=== PATIENT | female | born 1995 | race Caucasian/White ===

== ENCOUNTER → 2021-11-18 | Outpatient (CLI) | payer OTHER ==
[~2021-11-18] MED LIST: GADOTERATE 0.5 MMOL/ML (CLARISCAN) 15 ML VIAL IV ONE; NF-ESOM40C PO; ONDA4TAB8 PO
--- NOTE | 2021-11-18 14:19 | Diagnostic Imaging Report ---
PROCEDURE: MR imaging of the brain with and without contrast. TECHNIQUE: Multiplanar, multisequence MR imaging of the brain was performed with and without contrast. INDICATION: Headache. COMPARISON: None. FINDINGS: No abnormal intracranial signal or enhancement. No restricted water diffusion. No hemosiderin deposition or evidence of intracranial hemorrhage. Normal morphology including the major midline structures, sella, posterior fossa, and cerebellopontine angle. Normal intracranial flow voids. No hydrocephalus or extra-axial fluid collections. The orbits are negative. Paranasal sinuses and mastoids are clear. Normal bone marrow signal. IMPRESSION: Normal MRI of the brain without and with IV contrast. No acute findings. Dictated by: Dictated on workstation # [id number]
--- NOTE | 2021-11-18 14:21 | Diagnostic Imaging Report ---
PROCEDURE: MR imaging cervical spine with and without contrast. TECHNIQUE: Multiplanar and multisequence MRI of the cervical spine was performed with and without contrast. INDICATION: Neck pain. Headaches. COMPARISON: None. FINDINGS: Normal alignment. Vertebral body heights preserved. No abnormal bone marrow signal or enhancement. No abnormal signal or enhancement in the cervical spinal cord. At C3-C4, small disc protrusion results in mild to moderate left neural foraminal narrowing. No spinal canal narrowing. No other substantial spondylotic change or evidence of neural impingement in the cervical spine. Visualized paravertebral soft tissues are unremarkable. IMPRESSION: 1. Small left paracentral disc protrusion at C3-C4 results in mild to moderate left neural foraminal narrowing. 2. No other spondylotic change or evidence of neural impingement. 3. No abnormal signal or enhancement in the cervical spinal cord. Dictated by: Dictated on workstation # [id number]
== END ==
LOC: RAD 12:30
PROVIDERS: ATTEND Chiropractor
DX: M99.01 Segmental and somatic dysfunction of cervical region (principal); M99.02 Segmental and somatic dysfunction of thoracic region
CPT/HCPCS: 70553; 72156

== ENCOUNTER → 2022-11-03 | Outpatient (CLI) | payer OTHER ==
[~2022-11-03] MED LIST changes: -GADOTERATE 0.5 MMOL/ML (CLARISCAN) 15 ML VIAL IV ONE
--- NOTE | 2022-11-03 14:59 | Diagnostic Imaging Report ---
INDICATION: Routine care TECHNIQUE: Multiple real-time grayscale images were obtained over the gravid uterus. COMPARISON: None FINDINGS: Fried intrauterine fetus is present in variable presentation. Amniotic fluid index is 13 cm and placenta is anterior with heart rate of 153 bpm. No anomalies identified. biometry indicates gestational age of 20 weeks. Cervical length is 4.6 cm. There is no evidence of previa. No maternal adnexal region abnormality is seen. IMPRESSION: Unremarkable obstetrical ultrasound estimated gestational age of 20 weeks. Sonographic EDC is 03/23/2023. Biometrical measurements are as follows: Biparietal 4.52 cm, age 19 weeks 5 days. Head circumference 17.05 cm, age 19 weeks 5 days. Abdominal circumference 15.17 cm, age 20 weeks 3 days. Femur length 3.23 cm, age 20 weeks 1 days. Sonographic estimate age: 20 weeks 0 days. Sonographic estimated date of delivery: 03/23/2023. Estimated Weight: 336 gm (+/- 49 gm). LMP percentile: 46%. heart rate: 153 beats per minute. number: 1 of 1. IMPRESSION: Dictated by: Dictated on workstation # [id number]
== END ==
LOC: RAD 10:00
PROVIDERS: ATTEND Nurse Practitioner Women's Health
DX: Z34.02 Encounter for supervision of normal first pregnancy, second trimester (principal); Z3A.20 20 weeks gestation of pregnancy
CPT/HCPCS: 76805

== ENCOUNTER 2023-02-23 14:09 | Outpatient (CLI) | payer OTHER ==
[~2023-02-23] VITALS: Ht 160 cm; Wt 84.2 kg
[2023-02-23] VITALS (8 sets, daily range): BP systolic 120–131; BP diastolic 69–86
[2023-02-23 14:38] LABS: CLARITY,URINE CLEAR; COLOR,URINE YELLOW; GLUCOSE, URINE (UA) NEGATIVE (NEGATIVE); KETONES,URINE NEGATIVE (NEGATIVE); NITRITE,URINE NEGATIVE (NEGATIVE); PH,URINE 6.5 (5-9); PROTEIN,URINE NEGATIVE (NEGATIVE)
[2023-02-23 14:39] LABS: BILIRUBIN,URINE NEGATIVE (NEGATIVE); LEUKOCYTE ESTERASE ,URINE NEGATIVE (NEGATIVE)
[2023-02-23 14:42] LABS: RBC,URINE RARE /HPF
[2023-02-23 14:43] LABS: BACTERIA,URINE FEW /HPF; WBC,URINE 0-2 /HPF
[2023-02-23] MEDS ORDERED: DOXY25TA56 PO (15:48)
[2023-02-23] MEDS ORDERED: FAMO-119 PO (15:48)
[2023-02-23] MEDS ORDERED: CITA40TA19 PO (15:48)
[2023-02-23] MEDS ORDERED: PREN1TAB79 PO (15:48)
--- NOTE | 2023-02-24 08:19 | Physician Query-Final Dx ---
AMARJIT,02/24/23 0819: Clinic Account Progress/Dx Physician Query: Please give diagnosis Please include # weeks gestation Date of Service Feb 23, 2023 at 14:09 SELVIN SOTO DO 02/24/23 1241: Clinic Account Progress/Dx DIAGNOSIS: Diagnosis 36 week IUP Irregular contractions AMARJIT,JulFeb 24, 2023 08:19 SELVIN SOTO DO Feb 24, 2023 12:41
== END 2023-02-23 16:05 | disposition home or self-care (01) ==
LOC: WSo 14:09 → LDRP 14:09 → WSo 16:05
PROVIDERS: ATTEND Obstetrics & Gynecology
DX: O47.03 False labor before 37 completed weeks of gestation, third trimester (principal); Z3A.36 36 weeks gestation of pregnancy
CPT/HCPCS: 81000; 87077; 87088; 99214

== ENCOUNTER 2023-03-16 06:35 | Inpatient (IN) | payer OTHER ==
[~2023-03-16] VITALS: Ht 160 cm; Wt 87.0 kg
[2023-03-16] VITALS (62 sets, daily range): BP systolic 103–149; BP diastolic 54–87
[~2023-03-16 06:35] MED LIST changes: +CITA40TA19 PO; +DOXY25TA56 PO; +FAMO-119 PO; +PREN1TAB79 PO
--- NOTE | 2023-03-16 07:22 | History & Physical-OB ---
LINDENSTEPH 03/16/23 0722: OB - Chief Complaint & HPI Date/Time Date of Admission: Date of Admission: Mar 16, 2023 at 06:35 Date seen by a Provider: Mar 16, 2023 Time Seen by a Provider: 08:00 Chief Complaint/History OB-Reason for Admission/Chief: Induction of Labor Hx : 2 Hx Para: 1 Expected Date of Delivery: Mar 16, 2023 Indication for induction: post dates Allergies and Home Medications Allergies Coded Allergies: No Known Drug Allergies (Unverified , 03/18/10) Patient Home Medication List Citalopram Hydrobromide (Celexa) 40 Mg Tablet, 40 MG PO HS, (Reported) Entered as Reported by: MONSE WEST on 02/23/231547 Doxylamine Succinate (Unisom) 25 Mg Tablet, 25 MG PO HS, (Reported) Entered as Reported by: MONSE WEST on 02/23/231547 Famotidine (Pepcid) 20 Mg Tablet, 20 MG PO HS, (Reported) Entered as Reported by: MONSE WEST on 02/23/231547 Vit W-Ca,Fe,FA(<1 mg) ( Vitamins) 27 Mg Iron-800 Mcg Tablet, 1 EACH PO DAILY, (Reported) Entered as Reported by: MONSE WEST on 02/23/231547 OB - History Hx of Present Care: Yes Ultrasounds: Normal mid trimester US Obstetrical Complications: None Medical Complications: None Information Induced Hypertension: No Maternal Gestational Diabetes: No Hemorrhage: No Obstetrical History Hx : 2 Hx Para: 1 Number of Living Children: 1 Delivery History Hx Blood Disorders: No Adverse Rxn to Tranfusion: No Patient Past Medical History NC Social History/Family History 2nd Hand Smoke Exposure: No OB - Admission Exam Physical Exam HEENT: NCAT Heart: Rhythm Normal Lungs: Clear Abdomen: Gravid Extremities: Normal Reflexes: Normal Cervical Dilatation: 4cm Effacement: 75% Station: -1 Membranes: Intact Amniotic Fluid: Clear Heart Rate: 130's Contractions on Admission: 6-10 Minutes Apart OB - Assessment/Plan/Diagnosis Assessment Assessment: induction of labor Admission Dx Elective induction of labor at term Admission Status: Inpatient Order (span 2 midnights) Reason for Inpatient Admission: IOL Plan Plan: Expectant Management, Induction Induction Method: per Pitocin Protocol Reason for Induction: Elective at term Discharge Diagnosis Diagnosis: Anemia of acute blood loss ANDREI SOTO DO 03/16/2313: Allergies and Home Medications Allergies Coded Allergies: No Known Drug Allergies (Unverified , 03/18/10) Patient Home Medication List Home Medication List Reviewed: Yes Citalopram Hydrobromide (Celexa) 40 Mg Tablet, 40 MG PO HS, (Reported) Entered as Reported by: MONSE WEST on 02/23/231547 Doxylamine Succinate (Unisom) 25 Mg Tablet, 25 MG PO HS, (Reported) Entered as Reported by: MONSE WEST on 02/23/231547 Famotidine (Pepcid) 20 Mg Tablet, 20 MG PO HS, (Reported) Entered as Reported by: MONSE WEST on 02/23/231547 Vit W-Ca,Fe,FA(<1 mg) ( Vitamins) 27 Mg Iron-800 Mcg Tablet, 1 EACH PO DAILY, (Reported) Entered as Reported by: MONSE WEST on 02/23/231547 OB - Assessment/Plan/Diagnosis Plan Other Plan Verification and Attestation of Medical Student E/M Service A medical student performed and documented this service in my presence. I reviewed and verified all information documented by the medical student and made modifications to such information, when appropriate. I personally performed the physical exam and medical decision making. Andrei Soto, Mar 16, 2023,08:13 STEPH CHEATHAM Mar 16, 2023 07:22 ANDREI SOTO DO Mar 16, 2023 08:13
[2023-03-16] MEDS ORDERED: LACTATED RINGERS 1,000 ML 500 ML IV PRN (07:30)
[2023-03-16] MEDS ORDERED: LIDOCAINE 1% INJ 20 ML VIAL IJ PRN (07:30)
[2023-03-16] MEDS: D5 LR 1,000 ML IV SOLN 1,000 ML IV SCH ×2 (07:41→15:35)
[2023-03-16 07:46] LABS: BASOPHILS % (AUTO) 0 % (0-10); EOSINOPHILS # (AUTO) 0.1 10^3/uL (0.0-0.3); EOSINOPHILS % (AUTO) 1 % (0-10); HEMATOCRIT 32 % (35-52); LYMPHOCYTES # (AUTO) 1.2 10^3/uL (1.0-4.0); LYMPHOCYTES % (AUTO) 14 % (12-44); MEAN CORPUSCULAR HEMOGLOBIN 28 pg (25-34); MEAN CORPUSCULAR HGB CONC 32 g/dL (32-36); MEAN CORPUSCULAR VOLUME 89 fL (80-99); MEAN PLATELET VOLUME 11.8 fL (9.0-12.2); MONOCYTES # (AUTO) 0.5 10^3/uL (0.0-1.0); MONOCYTES % (AUTO) 6 % (0-12); NEUTROPHILS % (AUTO) 79 % (42-75); PLATELET COUNT 246 10^3/uL (130-400); WHITE BLOOD COUNT 8.8 10^3/uL (4.3-11.0)
[2023-03-16 07:49] LABS: CLARITY,URINE CLEAR; COLOR,URINE YELLOW
[2023-03-16 07:50] LABS: BACTERIA,URINE MODERATE /HPF; BILIRUBIN,URINE NEGATIVE (NEGATIVE); GLUCOSE, URINE (UA) NEGATIVE (NEGATIVE); KETONES,URINE NEGATIVE (NEGATIVE); LEUKOCYTE ESTERASE ,URINE TRACE (NEGATIVE); NITRITE,URINE NEGATIVE (NEGATIVE); PROTEIN,URINE 2+ (NEGATIVE); SQUAMOUS EPITHELIAL CELL,UR >50 /HPF; WBC,URINE 0-2 /HPF
[2023-03-16] MEDS ORDERED: OXYTOCIN DRIP PRE-MIX 500 ML IV SCH (08:15)
[2023-03-16] MEDS ORDERED: fentaNYL 2 mcg/ml BUPIVA 0.125 100 ML ONE (09:08)
[2023-03-16] MEDS ORDERED: fentaNYL INJECTION 100 MCG/2 ML VIAL ONE (09:46)
[2023-03-16] MEDS ORDERED: BUPIVACAINE 0.25% 10 ML VIAL ONE (09:46)
[2023-03-16] MEDS: fentaNYL 2 mcg/ml BUPIVA 0.125 100 ML EPI SCH ×2 (10:15→17:26)
[2023-03-16] MEDS ORDERED: NALOXONE 0.4 MG/ML 1 ML VIAL IV PRN ×2 (12:45→21:15)
[2023-03-16] MEDS ORDERED: CATHETER FLUSH 10 ML SYR IV PRN (12:45)
[2023-03-16] MEDS ORDERED: diphenhydrAMINE INJ 50 MG/ML VIAL IV PRN (12:45)
[2023-03-16] MEDS ORDERED: LACTATED RINGERS 1,000 ML 1,000 ML IV ONE (12:45)
[2023-03-16] MEDS ORDERED: ONDANSETRON INJECTION 4 MG/2 ML (SDV) IV PRN (12:45)
[2023-03-16] MEDS ORDERED: CATHETER FLUSH 10 ML SYR IV SCH ×2 (14:00→22:00)
[2023-03-16] MEDS ORDERED: LIDOCAINE 1% INJ 10 ML VIAL ONE (15:34)
[2023-03-16] MEDS ORDERED: ceFAZolin INJECTION 2,000 MG in NS (IVPB) 50 ML 50 ML IV ONE (21:00)
[2023-03-16] MEDS ORDERED: HYDROcodone/ACETAMINOPHEN 5 MG/325 MG TABLET PO PRN (21:15)
[2023-03-16] MEDS ORDERED: MEASLES, MUMPS, RUBELLA VACCINE (MMR) SQ ONE (21:15)
[2023-03-16] MEDS ORDERED: BENZOCAINE/MENTHOL (DERMOPLAST) 56 ML CAN TP PRN (21:15)
[2023-03-16] MEDS ORDERED: Tetanus/Diphtheria/Pertussis (Acell) ADULT Vaccine 0.5 ML IM ONE (21:15)
[2023-03-16] MEDS ORDERED: DIBUCAINE 1% OINTMENT 28 GM TUBE TOP PRN (21:15)
--- NOTE | 2023-03-16 21:19 | OB Labor & Delivery Record ---
L&D History Date of Service Date of Service: Mar 16, 2023 History Expected Date of Delivery: Mar 16, 2023 Gestational Age in Weeks: 39 Hx : 2 Hx Para: 1 Complications Events: Routine care Operative Indications (Cesarea: N/A-Vaginal Delivery Intrapartal Events: None L&D Stage1 Stage One Onset of Labor - Date: Mar 16, 2023 Monitors and Tracing Monitor Mode: Internal Heart Rate: 150 Station: +1 Mcfp Variability: Average (6-10) Short Term Variability: Present Presentation: Vertex Vital Signs VS - Last 72 Hours, by Label 03/16/23 03/16/23 03/16/23 03/16/23 08:05 08:31 09:08 09:23 Temp 37.2 36.3 Pulse 99 99 96 93 Resp 20 20 20 22 B/P (MAP) 149/83 (105) 145/75 (98) 129/74 (92) Pulse Ox 98 O2 Delivery Room Air Room Air Room Air Room Air 03/16/23 03/16/23 03/16/23 03/16/23 09:37 09:52 09:55 10:08 Pulse 101 106 104 108 Resp 22 20 20 22 B/P (MAP) 130/74 (92) 133/79 (97) 133/79 (97) 124/83 (97) Pulse Ox 100 100 99 O2 Delivery Room Air Room Air Room Air Room Air 03/16/23 03/16/23 03/16/23 03/16/23 10:10 10:12 10:20 10:25 Pulse 108 95 90 95 Resp 22 22 22 22 B/P (MAP) 124/84 (97) 123/77 (92) 133/80 (97) 128/74 (92) Pulse Ox 99 98 97 99 O2 Delivery Room Air Room Air Room Air Room Air 03/16/23 03/16/23 03/16/23 03/16/23 10:30 10:35 10:40 10:45 Pulse 82 97 82 81 Resp 22 22 20 20 B/P (MAP) 127/72 (90) 131/81 (98) 125/74 (91) 125/75 (92) Pulse Ox 98 98 98 98 O2 Delivery Room Air Room Air Room Air Room Air 03/16/23 03/16/23 03/16/23 03/16/23 10:50 10:55 11:00 11:05 Pulse 82 80 77 98 Resp 20 20 20 20 B/P (MAP) 123/86 (98) 120/71 (87) 118/69 (85) 125/71 (89) Pulse Ox 98 98 97 99 O2 Delivery Room Air Room Air Room Air Room Air 03/16/23 03/16/23 03/16/23 03/16/23 11:10 11:15 11:40 11:55 Temp 36.7 Pulse 84 92 97 96 Resp 20 20 18 18 B/P (MAP) 126/71 (89) 124/85 (98) 144/87 (106) 132/75 (94) Pulse Ox 98 99 97 97 O2 Delivery Room Air Room Air Room Air Room Air 03/16/23 03/16/23 03/16/23 03/16/23 12:15 12:26 12:40 12:55 Pulse 91 93 85 94 Resp 18 20 20 20 B/P (MAP) 124/75 (91) 130/85 (100) 114/56 (75) 114/54 (74) Pulse Ox 97 96 97 97 O2 Delivery Room Air Room Air Room Air Room Air 03/16/23 03/16/23 03/16/23 03/16/23 13:15 13:30 13:40 15:10 Pulse 88 96 97 Resp 20 20 20 B/P (MAP) 127/61 (83) 121/73 (89) 125/77 (93) 133/73 (93) Pulse Ox 97 99 97 O2 Delivery Room Air Room Air Room Air 03/16/23 03/16/23 03/16/23 03/16/23 15:40 16:00 16:15 16:30 Pulse 96 92 85 Resp 20 20 20 20 B/P (MAP) 119/72 (88) 121/73 (89) 120/75 (90) 123/69 (87) Pulse Ox 98 100 99 100 O2 Delivery Room Air Room Air Room Air Room Air 03/16/23 03/16/23 03/16/23 03/16/23 16:45 17:00 17:15 18:02 Temp 37.3 Pulse 122 126 126 117 Resp 22 22 22 20 B/P (MAP) 132/67 (88) 114/79 (91) Pulse Ox 100 100 100 O2 Delivery Room Air Room Air Room Air Room Air 03/16/23 03/16/23 03/16/23 03/16/23 18:32 18:40 18:45 18:55 Pulse 110 112 110 114 Resp 20 20 22 20 B/P (MAP) 122/58 (79) 103/55 (71) 122/58 (79) 118/78 (91) Pulse Ox 100 O2 Delivery Room Air Room Air Room Air Room Air 03/16/23 03/16/23 03/16/23 03/16/23 19:00 19:10 19:32 20:07 Temp 38.4 38.7 Pulse 110 Resp 22 B/P (MAP) 122/58 (79) 121/79 (93) Pulse Ox 100 O2 Delivery Room Air 03/16/23 20:53 Temp 38.4 Rupture of Membranes Spontaneous Ruture of Membrane: Yes Amniotic Membrane Rupture Time: 0802 Amniotic Membrane Fluid Desc.: Clear Induction/Anesthesia Epidural Cath Placement - Time: 1006 Progress/Notes Patient brought in for IOL at 39 weeks at her request. She had arom performed and pitocin augmentation started, she had an epidural placed and progressed to complete and + 1 station, when she began to push. L&D Stage2 Stage Two Stage II Date: Mar 16, 2023 Monitors and Tracing Monitor Mode: Internal Heart Rate: 150 Monitor Accelerations: Uniform Monitor Decelerations: Variable Mcfp Variability: Average (6-10) Short Term Variability: Present Position: Right Occiput Anterior Presentation: Vertex Signs of Distress by FHT Signs of Distress Patient was ineffective at pushing initially, and presentation was too high for operative extraction so she was labored down for nearly 3 hrs with position changes. When reassessed station was noted at +2-3, discussed with patient operative low vacuum extraction, due to continued ineffective pushing. Risk reviewed with RN present to confirm discussion, all questions answered. With next contraction break I applied the kiwi vacuum cup to the flexion point of the scalp, and rechecked for correct position after it was placed. With next maternal contraction, 500 mmHg applied using handpiece and with gentle extension of the head, the head was delivered over an RML episiotomy. After this, FSE and vacuum removed, anterior and posterior shoulders delivered without difficulty. Infant was brought out onto maternal abdomen. Cord Descript/Complications Cord Vessel Description: 3 Vessels Delivery Type Delivery Method: Low Vacuum Extraction Anterior Shoulder: Left Episiotomy/Perineal Laceration Laceraction(s)/Extensions: Yes Episiotomy Description: Right Mediolateral Degree (describe repair) RML repaired using 3-0 and 2-0 vicryl in usual fashion Condition of Infant Delivery 1 minute Comment: 5 5 minute Comment: 7,9 Notes Live female 7lbs 12 oz Condition of Infant Condition of Infant: Living Exam: No Observed Abnormalities Resuscitation Resuscitation: N/A - Spontaneous Resp L&D Stage3 Stage Three Stage III Date: Mar 16, 2023 Pictocin Pitocin Administration mu/min: 8 Pitocin ml/hr: 8 Pitocin Administration Comment: 30 mu wide open after delivery of placenta Due to significant swelling mckoy catheter was replaced, and maternal temp was noted prior to delivery so 2 gm ancef was given at delivery. Placenta Delivery Placenta Delivery: Spontaneous Delivery Summary Summary Estimated blood loss (mL): 350 Attending at delivery: Selvin Soto DO Condition of Delivery Examined: Cervix Examined, Uterus Explored Post Hemorrhage: No Condition of Mother stable Condition of Infant (s) stable SELVIN SOTO DO Mar 16, 2023 21:19
[2023-03-16] MEDS: OXYTOCIN DRIP PRE-MIX 500 ML IV SCH ×2 (21:41→22:05)
[2023-03-16] MEDS: IBUPROFEN 600 MG TABLET PO SCH (21:52)
[2023-03-17 04:23] VITALS: BP 110/57
[2023-03-17] MEDS: IBUPROFEN 600 MG TABLET PO SCH ×4 (04:24→23:56)
[2023-03-17 05:36] LABS: BASOPHILS % (AUTO) 0 % (0-10); EOSINOPHILS % (AUTO) 0 % (0-10); HEMATOCRIT 26 % (35-52); HEMOGLOBIN 8.3 g/dL (11.5-16.0); LYMPHOCYTES # (AUTO) 1.1 10^3/uL (1.0-4.0); LYMPHOCYTES % (AUTO) 6 % (12-44); MEAN CORPUSCULAR HEMOGLOBIN 29 pg (25-34); MEAN CORPUSCULAR HGB CONC 32 g/dL (32-36); MEAN CORPUSCULAR VOLUME 89 fL (80-99); MEAN PLATELET VOLUME 11.5 fL (9.0-12.2); MONOCYTES % (AUTO) 6 % (0-12); NEUTROPHILS # (AUTO) 16.5 10^3/uL (1.8-7.8); NEUTROPHILS % (AUTO) 88 % (42-75); PLATELET COUNT 218 10^3/uL (130-400); WHITE BLOOD COUNT 18.8 10^3/uL (4.3-11.0)
[2023-03-17] MEDS: WITCH HAZEL(TUCKS) 40 EA JAR TOP PRN (06:17)
--- NOTE | 2023-03-17 07:04 | Postpartum Progress Note ---
STEPH CHEATHAM 03/17/23 0704: Note Note Day # 1 Subjective: Patient is without complaints. Ambulating, has not tried voiding as of 0650. Connor catheter out around 0600. Tolerating a regular diet without vomiting. Reports minor nausea last night. Normal lochia. Pain is well controlled with oral pain medications. Bottle feeding. Objective: Physical Exam: General - Alert and oriented, no apparent distress Abdomen - Soft, appropriately tender to palpation, non-distended, fundus firm at umbilicus Extremities - no edema, negative Lex's bilaterally Assessment: post- day # 1, status post vacuum-assisted vaginal delivery with episiotomy. Recovering well, hemodynamically stable, low hemoglobin Plan: Routine care. Encourage breast feeding. Encourage ambulation. Ferrous sulfate supplementation. Plan for discharge 03/18/23 AM Vitals - Labs Vital Signs - I&O Vital Signs Date Time Temp Pulse Resp B/P (MAP) Pulse Ox O2 Delivery O2 Flow Rate FiO2 03/17/23 04:23 36.0 95 18 110/57 (74) 98 Room Air 03/16/23 23:23 100 18 138/73 (94) 97 Room Air 03/16/23 23:02 37.4 107 18 131/69 (89) 97 Room Air 03/16/23 22:53 103 128/65 (86) 03/16/23 22:38 101 121/61 (81) 03/16/23 22:24 121 112/61 (78) 03/16/23 22:08 111 135/62 (86) 03/16/23 22:04 112 139/69 (92) 03/16/23 21:56 115 138/64 (88) 03/16/23 21:53 121 132/62 (85) 03/16/23 21:43 112 144/83 (103) 03/16/23 21:24 99 123/57 (79) 03/16/23 21:09 101 130/58 (82) 03/16/23 20:55 113 18 138/61 (86) 99 Room Air 03/16/23 20:53 38.4 03/16/23 20:40 102 104/65 (78) 99 Room Air 03/16/23 20:34 110 18 100 Room Air 03/16/23 20:26 128/60 (82) 03/16/23 20:11 136/77 (96) 03/16/23 20:07 38.7 03/16/23 19:55 123/71 (88) 03/16/23 19:40 126/75 (92) 03/16/23 19:32 38.4 03/16/23 19:10 121/79 (93) 03/16/23 19:00 110 22 122/58 (79) 100 Room Air 03/16/23 18:55 114 20 118/78 (91) Room Air 03/16/23 18:45 110 22 122/58 (79) 100 Room Air 03/16/23 18:40 112 20 103/55 (71) Room Air 03/16/23 18:32 110 20 122/58 (79) Room Air 03/16/23 18:02 37.3 117 20 114/79 (91) Room Air 03/16/23 17:15 126 22 100 Room Air 03/16/23 17:00 126 22 100 Room Air 03/16/23 16:45 122 22 132/67 (88) 100 Room Air 03/16/23 16:30 20 123/69 (87) 100 Room Air 03/16/23 16:15 85 20 120/75 (90) 99 Room Air 03/16/23 16:00 92 20 121/73 (89) 100 Room Air 03/16/23 15:40 96 20 119/72 (88) 98 Room Air 03/16/23 15:10 97 20 133/73 (93) 97 Room Air 03/16/23 13:40 96 20 125/77 (93) 99 Room Air 03/16/23 13:30 121/73 (89) 03/16/23 13:15 88 20 127/61 (83) 97 Room Air 03/16/23 12:55 94 20 114/54 (74) 97 Room Air 03/16/23 12:40 85 20 114/56 (75) 97 Room Air 03/16/23 12:26 93 20 130/85 (100) 96 Room Air 03/16/23 12:15 91 18 124/75 (91) 97 Room Air 03/16/23 11:55 36.7 96 18 132/75 (94) 97 Room Air 03/16/23 11:40 97 18 144/87 (106) 97 Room Air 03/16/23 11:15 92 20 124/85 (98) 99 Room Air 03/16/23 11:10 84 20 126/71 (89) 98 Room Air 03/16/23 11:05 98 20 125/71 (89) 99 Room Air 03/16/23 11:00 77 20 118/69 (85) 97 Room Air 03/16/23 10:55 80 20 120/71 (87) 98 Room Air 03/16/23 10:50 82 20 123/86 (98) 98 Room Air 03/16/23 10:45 81 20 125/75 (92) 98 Room Air 03/16/23 10:40 82 20 125/74 (91) 98 Room Air 03/16/23 10:35 97 22 131/81 (98) 98 Room Air 03/16/23 10:30 82 22 127/72 (90) 98 Room Air 03/16/23 10:25 95 22 128/74 (92) 99 Room Air 03/16/23 10:20 90 22 133/80 (97) 97 Room Air 03/16/23 10:12 95 22 123/77 (92) 98 Room Air 03/16/23 10:10 108 22 124/84 (97) 99 Room Air 03/16/23 10:08 108 22 124/83 (97) 99 Room Air 03/16/23 09:55 104 20 133/79 (97) 100 Room Air 03/16/23 09:52 106 20 133/79 (97) 100 Room Air 03/16/23 09:37 101 22 130/74 (92) Room Air 03/16/23 09:23 93 22 129/74 (92) Room Air 03/16/23 09:08 96 20 145/75 (98) Room Air 03/16/23 08:31 36.3 99 20 98 Room Air 03/16/23 08:05 37.2 99 20 149/83 (105) Room Air I & O 03/17/23 07:00 Intake Total 3457 ml Output Total 1100 ml Balance 2357 ml Labs Laboratory Tests 03/16/23 07:35: White Blood Count 8.8, Red Blood Count 3.54L, Hemoglobin 10.0L, Hematocrit 32L, Mean Corpuscular Volume 89, Mean Corpuscular Hemoglobin 28, Mean Corpuscular Hemoglobin Concent 32, Red Cell Distribution Width 14.5, Platelet Count 246, Mean Platelet Volume 11.8, Immature Granulocyte % (Auto) 1, Neutrophils (%) (Auto) 79H, Lymphocytes (%) (Auto) 14, Monocytes (%) (Auto) 6, Eosinophils (%) (Auto) 1, Basophils (%) (Auto) 0, Neutrophils # (Auto) 7.0, Lymphocytes # (Auto) 1.2, Monocytes # (Auto) 0.5, Eosinophils # (Auto) 0.1, Basophils # (Auto) 0.0, Immature Granulocyte # (Auto) 0.1, Urine Color YELLOW, Urine Clarity CLEAR, Urine pH 7.0, Urine Specific [place] 1.025H, Urine Protein 2+H, Urine Glucose (UA) NEGATIVE, Urine Ketones NEGATIVE, Urine Nitrite NEGATIVE, Urine Bilirubin NEGATIVE, Urine Urobilinogen 0.2, Urine Leukocyte Esterase TRACEH, Urine RBC (Auto) 1+H, Urine RBC 5-10H, Urine WBC 0-2, Urine Squamous Epithelial Cells >50H , Urine Crystals NONE, Urine Bacteria MODERATEH, Urine Casts NONE, Urine Mucus SMALLH, Urine Culture Indicated NO, Syphilis Total Antibody Negative 03/17/23 05:28: White Blood Count 18.8H, Red Blood Count 2.91L, Hemoglobin 8.3L, Hematocrit 26L, Mean Corpuscular Volume 89, Mean Corpuscular Hemoglobin 29, Mean Corpuscular Hemoglobin Concent 32, Red Cell Distribution Width 14.6H, Platelet Count 218, Mean Platelet Volume 11.5, Immature Granulocyte % (Auto) 1, Neutrophils (%) (Auto) 88H, Lymphocytes (%) (Auto) 6L, Monocytes (%) (Auto) 6, Eosinophils (%) (Auto) 0, Basophils (%) (Auto) 0, Neutrophils # (Auto) 16.5H, Lymphocytes # (Auto) 1.1, Monocytes # (Auto) 1.0, Eosinophils # (Auto) 0.0, Basophils # (Auto) 0.0, Immature Granulocyte # (Auto) 0.1 CHARLESANDREI 03/17/23 0712: Note Note Diagnosis addendum: add Acute blood loss anemia Verification and Attestation of Medical Student E/M Service A medical student performed and documented this service in my presence. I reviewed and verified all information documented by the medical student and made modifications to such information, when appropriate. I personally performed the physical exam and medical decision making. Andrei Soto, Mar 17, 2023,07:12 STEPH CHEATHAM Mar 17, 2023 07:04 ANDREI SOTO DO Mar 17, 2023 07:12
[2023-03-17] MEDS: DOCUSATE SODIUM 100 MG CAPSULE PO SCH ×2 (09:03→20:42)
[2023-03-17 09:04] VITALS: BP 121/64
[2023-03-17] MEDS: PRENATAL VITAMIN TABLET PO SCH (09:04)
[2023-03-17] MEDS: FERROUS SULFATE 325 MG (IRON) TABLET PO SCH (09:04)
[2023-03-17 12:00] VITALS: BP 104/64
--- NOTE | 2023-03-17 14:12 | Anesthesia-Regional Post-Op ---
Regional Patient Condition Mental Status: Alert, Oriented x3 Circulation: Same as Pre-Op Headache: Absent Sensation: Full Recovery Motor Block: Absent Post Op Complications Complications None Follow Up Care/Instructions Patient Instructions None needed. Anesthesia/Patient Condition Patient is doing well, no complaints, stable vital signs, no apparent adverse anesthesia problems. No complications reported per nursing. KELSEY MELLO CRNA Mar 17, 2023 14:12
[2023-03-17 17:50] VITALS: BP 120/58
[2023-03-17] MEDS ORDERED: ACETAMINOPHEN 500 MG TABLET ONE (20:40)
[2023-03-17] MEDS: ACETAMINOPHEN 500 MG TABLET PO PRN (20:42)
[2023-03-17 23:56] VITALS: BP 113/62
[2023-03-18] MEDS: ACETAMINOPHEN 500 MG TABLET PO PRN (02:24)
[2023-03-18 06:03] VITALS: BP 101/54
[2023-03-18] MEDS: IBUPROFEN 600 MG TABLET PO SCH ×2 (06:03→11:45)
--- NOTE | 2023-03-18 08:42 | Postpartum Progress Note ---
Note Note Day # 2 Subjective: Patient is without complaints. Ambulating, voiding. Tolerating a regular diet without nausea or vomiting. Normal lochia. Pain is well controlled with oral pain medications. Objective: Physical Exam: General - Alert and oriented, no apparent distress Abdomen - Soft, appropriately tender to palpation, non-distended, fundus firm at umbilicus Extremities - no edema, negative Lex's bilaterally Assessment: VAVD PPD 2 Acute blood loss anemia Plan: Routine care. Encourage breast feeding. Encourage ambulation. Ferrous sulfate supplementation. Plan for discharge today Vitals - Labs Vital Signs - I&O Vital Signs Date Time Temp Pulse Resp B/P (MAP) Pulse Ox O2 Delivery O2 Flow Rate FiO2 03/18/23 06:03 36.4 79 18 101/54 (70) 98 Room Air 03/17/23 23:56 36.2 95 18 113/62 (79) 99 Room Air 03/17/23 17:50 36.5 88 18 120/58 (78) 97 Room Air 03/17/23 12:00 36.6 91 18 104/64 (77) 98 Room Air 03/17/23 09:04 36.7 91 18 121/64 (83) 98 Room Air CHARLESSELVIN Leal DO Mar 18, 2023 8:42 am
--- NOTE | 2023-03-18 08:43 | Discharge Inst-Women's Service ---
Discharge Inst-Women's Serv Depart Medication/Instructions New, Converted or Re-Newed RX: Transmitted to Pharmacy Final Diagnosis PPD 2 VAVD Problems Reviewed?: Yes Consults/Follow Up Additional Follow Up: Yes Orders/Referrals Dr. Reyes in 6 weeks Activity Activity: Activity as Tolerated Driving Instructions: No Driving for 1 Week NO SMOKING: NO SMOKING Nothing Inside Vagina: No Douching, No [place], No Tampons Diet Discharge Diet: No Restrictions Symptoms to Report to : Bleeding Excessive, Pain Increased, Fever Over 101 Degrees F, Vaginal Bleeding Increase, Questions/Concerns For Any Problems or Questions: Contact Your Physician Skin/Wound Care Infection Signs and Symptoms: Increased Redness, Foul Odor of Wound, Increased Drainage, Skin Itchy or Has a Rash, Increased Swelling, Temperature Above 101 F Operative Area Clean and Dry: Keep Incision Clean/Dry Stitches/Olivier/Dermabond: Dermabond, Care of Stitches Bathing Instructions: SELVIN Doimnguez DO Mar 18, 2023 8:43 am
[2023-03-18] MEDS ORDERED: IBUP-844 PO (08:45)
[2023-03-18] MEDS ORDERED: DOCU100C37 PO (08:45)
[2023-03-18] MEDS ORDERED: FERR325T24 PO (08:45)
[2023-03-18] MEDS ORDERED: ACHD5005 PO (08:45)
[2023-03-18] MEDS ORDERED: BENZ78AE5 TP (08:45)
[2023-03-18] MEDS: FERROUS SULFATE 325 MG (IRON) TABLET PO SCH (09:12)
[2023-03-18] MEDS: PRENATAL VITAMIN TABLET PO SCH (09:12)
[2023-03-18] MEDS: DOCUSATE SODIUM 100 MG CAPSULE PO SCH (09:12)
[2023-03-18] MEDS: WITCH HAZEL(TUCKS) 40 EA JAR TOP PRN (09:15)
== END 2023-03-18 11:45 | disposition home or self-care (01) | DRG 806 ==
LOC: LDRP 06:35
PROVIDERS: ADMIT Obstetrics & Gynecology; ATTEND Obstetrics & Gynecology
PROC: 10D07Z6 Extraction of Products of Conception, Vacuum, Via Natural or Artificial Opening (ICD-10-PCS; principal; 2023-03-16)
PROC: 0W8NXZZ Division of Female Perineum, External Approach (ICD-10-PCS; 2023-03-16)
PROC: 3E033VJ Introduction of Other Hormone into Peripheral Vein, Percutaneous Approach (ICD-10-PCS; 2023-03-16)
PROC: 10907ZC Drainage of Amniotic Fluid, Therapeutic from Products of Conception, Via Natural or Artificial Opening (ICD-10-PCS; 2023-03-16)
DX: O90.81 Anemia of the puerperium (principal); D62 Acute posthemorrhagic anemia; Z37.0 Single live birth
CPT/HCPCS: 36415; 81000; 85025; 86780; 86850; 86900; 86901